=== PATIENT | female | born 1980 | race Caucasian/White ===

== ENCOUNTER → 2019-03-20 | Outpatient (CLI) | payer OTHER ==
--- NOTE | 2019-03-21 11:03 | WOMENS IMAGING REPORT ---
EXAM DESCRIPTION: RIGHT DIAGNOSTIC MAMMO W/CAD; U/S BREAST UNILAT LIMITED COMPLETED DATE/TIME: 03/20/2019 8:31 am; 03/20/2019 8:51 am REASON FOR STUDY: N63.12 UNSPECIFIED LUMP IN THE RIGHT BREAST, UPPER INNER QUADRANT; RT BREAST ASYMM ETRY N63.12 UNSPECIFIED LUMP IN THE RIGHT BREAST, UPPER INNER LYNNE COMPARISON: 03/11/2019 EXAM PARAMETERS: Cone compression craniocaudal and mediolateral oblique images of the right breast, right whole breast 90 mediolateral view. Recorded with digital acquisition. Right breast ultrasound was also performed in the upper inner quadrant. Read with the assistance of CAD. .[facility] - [employer] Technician Version 9.2 LIMITATIONS: None. FINDINGS: BREAST LATERALITY: Right MASSES: No suspicious masses. CALCIFICATIONS: No new or suspicious calcifications. ARCHITECTURAL DISTORTION: None. DEVELOPING DENSITY: None. ASYMMETRY: Benign appearing asymmetric fibroglandular tissue is present in the upper inner quadrant OTHER: No other significant findings. Right breast ultrasound: Ultrasound of the upper half right breast was performed. Benign fibroglandular tissue is present in the upper inner quadrant without worrisome features. IMPRESSION: No mammographic evidence for malignancy right breast BREAST DENSITY: a. The breasts are almost entirely fatty. BIRAD: ASSESSMENT: 1 Negative. RECOMMENDATION: RECOMMENDED FOLLOW UP: Please continue yearly bilateral screening mammography/tomosy nthesis in February 2020 SPECIFIC INTERVENTION/IMAGING/CONSULTATION RECOMMENDED:No additional intervention/ imaging/consultati on needed at this time. COMMUNICATION:The negative/benign results were communicated to the patient. COMMENT: The patient has been notified of the results by letter per MQSA requirements. Additional no tification policies are in place for contacting patient with suspicious or incomplete findings. Quality ID #225: The [employer] recommends an annual screening mammogram for women aged 40 years or over. This facility utilizes a reminder system to ensure that all patients receive reminder letters, and/or direct phone calls for appointments. This includes reminders for routine scr eening mammograms, diagnostic mammograms, or other Breast Imaging Interventions when appropriate. Th is patient will be placed in the appropriate reminder system. TECHNICAL DOCUMENTATION: FINDING NUMBER: (1) ASSESSMENT: (1) JOB ID: [id number] [employer]- All Rights Reserved Reading location - IP/workstation name: [email or web address]
--- NOTE | 2019-03-21 11:03 | WOMENS IMAGING REPORT ---
EXAM DESCRIPTION: RIGHT DIAGNOSTIC MAMMO W/CAD; U/S BREAST UNILAT LIMITED COMPLETED DATE/TIME: 03/20/2019 8:31 am; 03/20/2019 8:51 am REASON FOR STUDY: N63.12 UNSPECIFIED LUMP IN THE RIGHT BREAST, UPPER INNER QUADRANT; RT BREAST ASYMM ETRY N63.12 UNSPECIFIED LUMP IN THE RIGHT BREAST, UPPER INNER LYNNE COMPARISON: 03/11/2019 EXAM PARAMETERS: Cone compression craniocaudal and mediolateral oblique images of the right breast, right whole breast 90 mediolateral view. Recorded with digital acquisition. Right breast ultrasound was also performed in the upper inner quadrant. Read with the assistance of CAD. .[facility], [facility] - [employer] Operator Version 9.2 LIMITATIONS: None. FINDINGS: BREAST LATERALITY: Right MASSES: No suspicious masses. CALCIFICATIONS: No new or suspicious calcifications. ARCHITECTURAL DISTORTION: None. DEVELOPING DENSITY: None. ASYMMETRY: Benign appearing asymmetric fibroglandular tissue is present in the upper inner quadrant OTHER: No other significant findings. Right breast ultrasound: Ultrasound of the upper half right breast was performed. Benign fibroglandular tissue is present in the upper inner quadrant without worrisome features. IMPRESSION: No mammographic evidence for malignancy right breast BREAST DENSITY: a. The breasts are almost entirely fatty. BIRAD: ASSESSMENT: 1 Negative. RECOMMENDATION: RECOMMENDED FOLLOW UP: Please continue yearly bilateral screening mammography/tomosy nthesis in February 2020 SPECIFIC INTERVENTION/IMAGING/CONSULTATION RECOMMENDED:No additional intervention/ imaging/consultati on needed at this time. COMMUNICATION:The negative/benign results were communicated to the patient. COMMENT: The patient has been notified of the results by letter per MQSA requirements. Additional no tification policies are in place for contacting patient with suspicious or incomplete findings. Quality ID #225: The [employer] recommends an annual screening mammogram for women aged 40 years or over. This facility utilizes a reminder system to ensure that all patients receive reminder letters, and/or direct phone calls for appointments. This includes reminders for routine scr eening mammograms, diagnostic mammograms, or other Breast Imaging Interventions when appropriate. Th is patient will be placed in the appropriate reminder system. TECHNICAL DOCUMENTATION: FINDING NUMBER: (1) ASSESSMENT: (1) JOB ID: [id number] [employer]- All Rights Reserved Reading location - IP/workstation name: [email or web address]
== END ==
LOC: WI 08:27
PROVIDERS: ATTEND Nurse Practitioner Primary Care
DX: N63.12 Unspecified lump in the right breast, upper inner quadrant (principal)
CPT/HCPCS: 76642

== ENCOUNTER 2019-12-15 08:55 | Day surgery (SDC) | payer OTHER ==
[2019-12-15 09:42] LABS: HEMATOCRIT 42.1 % (36.0-47.0); HEMOGLOBIN 14.6 g/dL (12.0-15.5); MEAN CORPUSCULAR HEMOGLOBIN 32.1 pg (27.0-33.4); MEAN CORPUSCULAR HGB CONC 34.5 g/dL (32.0-36.0); MEAN CORPUSCULAR VOLUME 93 fl (80-97); PLATELET COUNT 239 10^3/uL (150-450); RED BLOOD COUNT 4.53 10^6/uL (3.72-5.28); RED CELL DISTRIBUTION WIDTH 12.4 % (11.5-14.0); WHITE BLOOD COUNT 5.5 10^3/uL (4.0-10.5)
[2019-12-15 09:54] LABS: INTERNATIONAL RATION (INR) 1.07; PROTHROMBIN TIME 13.9 SEC (11.4-15.4)
[2019-12-15 09:55] LABS: PARTIAL THROMBOPLASTIN TIME 29.3 SEC (23.5-35.8)
[2019-12-15 10:00] LABS: BLOOD UREA NITROGEN 14 mg/dL (7-20)
[2019-12-15] MEDS ORDERED: FENTANYL CITRATE INJ/PF 100 MCG/2 ML AMPUL ONE (10:42)
[2019-12-15] MEDS ORDERED: MIDAZOLAM 2 MG/2 ML INJ ONE (10:42)
--- NOTE | 2019-12-15 12:15 | RADIOLOGY REPORT (SQ) ---
EXAM DESCRIPTION: CT BIOPSY ABD/RETROPERIT MASS; CT NEEDLE PLACEMENT COMPLETED DATE/TIME: 12/15/2019 11:12 am; 12/15/2019 11:13 am REASON FOR STUDY: LOCALIZED SWELLING, MASS AND LUMP, UNSPECIFIED; LOCALIZED SWELLING, MASS AND LUMP, UNSPECIFIED, RETROPERITONEAL BIOPSY R22.9 LOCALIZED SWELLING, MASS AND LUMP, UNSPECIFIED COMPARISON: None. TECHNIQUE: CT guided biopsy of the right rectus sheath mass performed with conscious sedation. CT Fluoroscopy Time: [address] scanners at this facility use dose modulation, iterative reconstruction, and/or weight based d osing when appropriate to reduce radiation dose to as low as reasonably achievable (ALARA). [facility]: Dose Right [facility]: CareDose [facility]: Dose Right [facility]: Teradose 4D [facility]: Smart Jamba! RADIATION DOSE: CT Rad equipment meets quality standard of care and radiation dose reduction techni ques were employed. CTDIvol: 4.7 - 13.6 mGy. DLP: 285 mGy-cm.mGy. FINDINGS: After obtaining informed consent and explaining the risks and benefits of conscious sedati on,the patient agreed to the procedure. Prior to the procedure, a time out was performed to verify th e patient's identity and planned procedure. IV sedation was administered and physician direction by the registered nurse using 1 milligrams of Ve rsed and 50 micrograms of fentanyl, for conscious sedation. Physiologic monitoring was provided befor e, during, and after sedation. The total sedation time was 30 minutes. Documentation face to face time, the performing proceduralist, spent monitoring the patient: [address] scanning was performed to localize the percutaneous site for the biopsy approach. After sterile skin prep and local lidocaine for skin and deep tissue anesthesia, a coaxial biopsy nee dle was used to obtain multiple cores of tissue. The biopsy tissue was submitted to the lab in forma jacques. There were no immediate complications. Pathology is pending at the time of dictation. IMPRESSION: CT GUIDED BIOPSY OF THE right rectus sheath mass PERFORMED WITHOUT IMMEDIATE COMPLICATIO N. PATHOLOGY PENDING. COMMENT: Quality ID 145: Final reports for procedures using fluoroscopy that document radiation exp osure indices, or exposure time and number of fluorographic images (if radiation exposure indices are not available) Patient medication list reviewed: Yes- Quality ID# [id number]:Eligible professional attests to documenting i n the medical record they obtained, updated, or reviewed the patient's current medications.. TECHNICAL DOCUMENTATION: JOB ID: [id number] Quality ID# [id number]: Final reports with documentation of one or more dose reduction techniques (e.g., Aut omated exposure control, adjustment of the mA and/or kV according to patient size, use of iterative r econstruction technique) 2010 [employer]- All Rights Reserved Reading location - IP/workstation name: [email or web address]
--- NOTE | 2019-12-15 12:15 | RADIOLOGY REPORT (SQ) ---
EXAM DESCRIPTION: CT BIOPSY ABD/RETROPERIT MASS; CT NEEDLE PLACEMENT COMPLETED DATE/TIME: 12/15/2019 11:12 am; 12/15/2019 11:13 am REASON FOR STUDY: LOCALIZED SWELLING, MASS AND LUMP, UNSPECIFIED; LOCALIZED SWELLING, MASS AND LUMP, UNSPECIFIED, RETROPERITONEAL BIOPSY R22.9 LOCALIZED SWELLING, MASS AND LUMP, UNSPECIFIED COMPARISON: None. TECHNIQUE: CT guided biopsy of the right rectus sheath mass performed with conscious sedation. CT Fluoroscopy Time: [address] scanners at this facility use dose modulation, iterative reconstruction, and/or weight based d osing when appropriate to reduce radiation dose to as low as reasonably achievable (ALARA). [facility]: Dose Right [facility]: CareDose [facility]: Dose Right [facility]: Teradose 4D [facility]: Smart First Wave RADIATION DOSE: CT Rad equipment meets quality standard of care and radiation dose reduction techni ques were employed. CTDIvol: 4.7 - 13.6 mGy. DLP: 285 mGy-cm.mGy. FINDINGS: After obtaining informed consent and explaining the risks and benefits of conscious sedati on,the patient agreed to the procedure. Prior to the procedure, a time out was performed to verify th e patient's identity and planned procedure. IV sedation was administered and physician direction by the registered nurse using 1 milligrams of Ve rsed and 50 micrograms of fentanyl, for conscious sedation. Physiologic monitoring was provided befor e, during, and after sedation. The total sedation time was 30 minutes. Documentation face to face time, the performing proceduralist, spent monitoring the patient: [address] scanning was performed to localize the percutaneous site for the biopsy approach. After sterile skin prep and local lidocaine for skin and deep tissue anesthesia, a coaxial biopsy nee dle was used to obtain multiple cores of tissue. The biopsy tissue was submitted to the lab in forma jacques. There were no immediate complications. Pathology is pending at the time of dictation. IMPRESSION: CT GUIDED BIOPSY OF THE right rectus sheath mass PERFORMED WITHOUT IMMEDIATE COMPLICATIO N. PATHOLOGY PENDING. COMMENT: Quality ID 145: Final reports for procedures using fluoroscopy that document radiation exp osure indices, or exposure time and number of fluorographic images (if radiation exposure indices are not available) Patient medication list reviewed: Yes- Quality ID# [id number]:Eligible professional attests to documenting i n the medical record they obtained, updated, or reviewed the patient's current medications.. TECHNICAL DOCUMENTATION: JOB ID: [id number] Quality ID# 436: Final reports with documentation of one or more dose reduction techniques (e.g., Aut omated exposure control, adjustment of the mA and/or kV according to patient size, use of iterative r econstruction technique) 2010 [employer]- All Rights Reserved Reading location - IP/workstation name: [email or web address]
[2019-12-15 15:43] VITALS: BP 109/59
== END 2019-12-15 13:00 | disposition home or self-care (01) ==
LOC: RAD 08:55
PROVIDERS: ATTEND Surgery
DX: R22.9 Localized swelling, mass and lump, unspecified (principal); R19.00 Intra-abdominal and pelvic swelling, mass and lump, unspecified site
CPT/HCPCS: 36415; 84520; 82565; 85027; 85610; 85730; 88342 ×2; 88341 ×2; 88305 ×2; 77012; 49180; J2250; J3010

== ENCOUNTER → 2020-04-16 | Outpatient (CLI) | payer OTHER ==
--- NOTE | 2020-04-16 10:50 | WOMENS IMAGING REPORT ---
EXAM DESCRIPTION: 3D SCREENING MAMMO BILAT IMAGES COMPLETED DATE/TIME: 04/16/2020 8:15 am REASON FOR STUDY: Z12.31 ENCOUNTER FOR SCREENING MAMMOGRAM FOR MALIGNANT NEOPLASM OF BREAST Z12.31 ENCNTR SCREEN MAMMOGRAM FOR MALIGNANT NEOPLASM OF INGRID COMPARISON: 03/11/2019. EXAM PARAMETERS: Standard craniocaudal and mediolateral oblique views of each breast recorded using digital acquisition and breast tomosynthesis. Read with the assistance of CAD. .[facility] - [employer] Manager Version 9.2 LIMITATIONS: None. FINDINGS: RIGHT BREAST MASSES: No suspicious masses. CALCIFICATIONS: No new or suspicious calcifications. ARCHITECTURAL DISTORTION: None. ASYMMETRY: Stable asymmetry in the superior breast. OTHER: No other significant findings. LEFT BREAST MASSES: No suspicious masses. CALCIFICATIONS: No new or suspicious calcifications. ARCHITECTURAL DISTORTION: None. ASYMMETRY: New focal asymmetry in the upper-outer breast, located 12 to 13 cm from the nipple. OTHER: No other significant findings. IMPRESSION: New focal asymmetry in the upper-outer left breast. Stable asymmetry in the right breas t. 0 Incomplete: Needs Additional Imaging Evaluation and/or prior Mammograms for Comparison. BREAST DENSITY: b. There are scattered areas of fibroglandular density. BIRAD: ASSESSMENT: 0 Incomplete: Needs Additional Imaging Evaluation and/or prior Mammograms for C omparison. RECOMMENDATION: RECOMMENDED FOLLOW-UP: Recommend additional evaluation with compression views of the left breast and ultrasound of the left breast. Recommend routine screening mammography of the right breast. The patient will be contacted for additional imaging. COMMENT: The patient has been notified of the results by letter per [place] requirements. Additional no tification policies are in place for contacting patient with suspicious or incomplete findings. Quality ID #225: The [employer] recommends an annual screening mammogram for women aged 40 years or over. This facility utilizes a reminder system to ensure that all patients receive reminder letters, and/or direct phone calls for appointments. This includes reminders for routine scr eening mammograms, diagnostic mammograms, or other Breast Imaging Interventions when appropriate. Th is patient will be placed in the appropriate reminder system. TECHNICAL DOCUMENTATION: FINDING NUMBER: (1) ASSESSMENT: (1) JOB ID: [id number] 2010 [employer]- All Rights Reserved Reading location - IP/workstation name: [email or web address]
== END ==
LOC: WI 07:23
PROVIDERS: ATTEND Nurse Practitioner Primary Care
DX: Z12.31 Encounter for screening mammogram for malignant neoplasm of breast (principal); N64.89 Other specified disorders of breast
CPT/HCPCS: 77063; 77067